=== PATIENT | female | born 1990 | race Caucasian/White ===

== ENCOUNTER 2016-09-09 06:18 | Inpatient (IN) ==
[2016-09-09] MEDS ORDERED: ZOFRAN IV PRN (06:43)
[2016-09-09] MEDS ORDERED: STADOL IV PRN (06:43)
[2016-09-09] MEDS ORDERED: PITOCIN 30 UNITS/LR 30 UNITS/500 ML IV.SOLN IV SCH (06:43)
[2016-09-09] MEDS ORDERED: KEFZOL 1 GM/D5W 1 GM/50 ML IVPB IV PRN (06:43)
[2016-09-09] MEDS ORDERED: TYLENOL PO PRN (06:43)
[2016-09-09] MEDS ORDERED: PEPCID PO ONE (06:43)
[2016-09-09] MEDS ORDERED: PEPCID PO PRN (06:43)
[2016-09-09] MEDS ORDERED: PEPCID IV PRN (06:43)
[2016-09-09] MEDS ORDERED: REGLAN PO ONE (06:43)
[2016-09-09] MEDS ORDERED: SODIUM CHLORIDE 0.9% INJ SCH (06:45)
[2016-09-09] MEDS: LR 1,000 ML IV SCH ×3 (07:15→10:40)
[2016-09-09 07:32] LABS: MANUAL DIFF NEEDED? NO; URINE SOURCE VOIDED
[2016-09-09 07:38] LABS: BILIRUBIN URINE NEGATIVE (NEGATIVE); BLOOD URINE NEGATIVE (NEGATIVE); CLARITY SL. CLOUDY (CLEAR); COLOR YELLOW; GLUCOSE URINE NEGATIVE (NEGATIVE); LEUKOCYTES URINE 2+ (NEGATIVE); NITRITE URINE NEGATIVE (NEGATIVE); PH URINE 6.5; PROTEIN URINE NEGATIVE (NEGATIVE); SP GRAVITY URINE 1.015; UROBILINOGEN URINE NORMAL
[2016-09-09 07:39] LABS: BASO% 0.3 % (0.0-0.8); EOS# 0.08 X1000 (0.0-0.7); EOS% 0.8 % (0.0-10.0); HEMATOCRIT 29.9 % (37.0-47.0); HEMOGLOBIN 9.9 g/dL (12.0-16.0); IMM GRAN# 0.29 X1000 (0.0-0.04); IMM GRAN% 2.7 % (0.0-0.5); LYMPH# 2.52 X1000 (1.2-3.4); LYMPH% 23.7 % (20.5-51.1); MCH 28.6 PG (27-31); MCHC 33.1 g/dL (33-37); MCV 86.4 FL (81-99); MONO# 0.95 X1000 (0.11-0.59); MONO% 8.9 % (1.7-9.3); MPV 10.6 FL (7.4-10.4); NEUT% 63.6 % (42.2-75.2); PLT 199 X1000 (130-400); RBC 3.46 XMIL (4.2-5.4); UR AMPHETAMINES QUAL NONE DETECTED (NONE DETECT); UR BARBITUATES QUAL NONE DETECTED (NONE DETECT); UR BENZODIAZEPIN QUAL NONE DETECTED (NONE DETECT); UR CANNABINOIDS QUAL NONE DETECTED (NONE DETECT); UR COCAINE QUAL NONE DETECTED (NONE DETECT); UR MDMA QUAL NONE DETECTED (NONE DETECT); UR METHADONE QUAL NONE DETECTED (NONE DETECT); UR METHAMPHETAMINE QUAL NONE DETECTED (NONE DETECT); UR OPIATES QUAL NONE DETECTED (NONE DETECT); UR OXYCODONE QUAL NONE DETECTED (NONE DETECT); UR PCP QUAL NONE DETECTED (NONE DETECT); UR TCA QUAL NONE DETECTED (NONE DETECT)
[2016-09-09] MEDS ORDERED: XYLOCAINE-MPF 1% INJ ONE (07:39)
[2016-09-09] MEDS ORDERED: MINERAL OIL ONE (07:40)
[2016-09-09] MEDS ORDERED: FENTANYL-BUPIV-NS 2 MCG-0.1% 200 ML EPIDURAL PRN (07:44)
[2016-09-09] MEDS ORDERED: PERI MEDS (DERMOPLAST/NUPERCAINAL/TUCKS) MISC PRN (15:59)
[2016-09-09] MEDS ORDERED: PITOCIN IM PRN (15:59)
[2016-09-09] MEDS ORDERED: BENADRYL PO PRN (15:59)
[2016-09-09] MEDS ORDERED: NORCO-5 PO PRN (15:59)
[2016-09-09] MEDS ORDERED: PITOCIN 20 UNITS/LR 20 UNITS/1,000 ML IV.SOLN IV SCH (15:59)
[2016-09-09] MEDS ORDERED: PERCOCET-10 PO PRN (15:59)
[2016-09-09] MEDS ORDERED: CYTOTEC PO PRN (15:59)
[2016-09-09] MEDS ORDERED: HYDROXYZINE PO PRN (15:59)
[2016-09-09] MEDS ORDERED: NORCO-10 PO PRN (15:59)
[2016-09-09] MEDS ORDERED: BENADRYL IV PRN (15:59)
[2016-09-09] MEDS ORDERED: MINERAL OIL PO PRN (15:59)
[2016-09-09] MEDS ORDERED: BOOSTRIX VACCINE IM ONE (15:59)
[2016-09-09] MEDS ORDERED: XYLOCAINE-MPF 1% INJ PRN (15:59)
[2016-09-09] MEDS ORDERED: PERCOCET-5 PO PRN (15:59)
[2016-09-09] MEDS ORDERED: M-M-R II VACCINE SUBQ ONE (15:59)
[2016-09-09] MEDS ORDERED: HYDROXYZINE IM PRN (15:59)
[2016-09-09] MEDS ORDERED: PITOCIN 30 UNITS/LR 30 UNITS/500 ML IV.SOLN IV ONE (15:59)
[2016-09-09] MEDS ORDERED: AMBIEN PO PRN (15:59)
[2016-09-09] MEDS: MOTRIN PO PRN (17:04)
[2016-09-09] MEDS: PERICOLACE PO SCH (20:09)
[2016-09-09] MEDS ORDERED: PNEUMOVAX 23 IM ONE (21:15)
[2016-09-10 05:56] LABS: MANUAL DIFF NEEDED? NO
[2016-09-10 06:12] LABS: BASO% 0.2 % (0.0-0.8); EOS# 0.09 X1000 (0.0-0.7); EOS% 0.8 % (0.0-10.0); HEMATOCRIT 29.2 % (37.0-47.0); HEMOGLOBIN 9.4 g/dL (12.0-16.0); IMM GRAN# 0.14 X1000 (0.0-0.04); IMM GRAN% 1.3 % (0.0-0.5); LYMPH# 2.61 X1000 (1.2-3.4); LYMPH% 23.5 % (20.5-51.1); MCH 28.1 PG (27-31); MCHC 32.2 g/dL (33-37); MCV 87.2 FL (81-99); MONO# 0.99 X1000 (0.11-0.59); MONO% 8.9 % (1.7-9.3); NEUT% 65.3 % (42.2-75.2); PLT 188 X1000 (130-400); RBC 3.35 XMIL (4.2-5.4)
[2016-09-10] MEDS: MOTRIN PO PRN ×2 (08:43→20:44)
[2016-09-10] MEDS: PERICOLACE PO SCH (20:44)
--- NOTE | 2016-09-11 08:19 | PROGRESS NOTE ---
DATE: 09/10/2016 SUBJECTIVE: She is day 1. She is without complaints. OBJECTIVE: Physical exam is within normal limits. Vital signs are stable. She is afebrile. ASSESSMENT: Routine . PLAN: Discharge in the a.m. on 09/11/2016. cc: MD Enrique Valencia MD
[2016-09-11 12:12] VITALS: BP 121/65
== END 2016-09-11 12:20 | disposition home or self-care (01) ==
LOC: P.LD 06:18 → P.WC 18:35
PROVIDERS: ADMIT Obstetrics & Gynecology; ATTEND Obstetrics & Gynecology